=== PATIENT | female | born 1965 | race Caucasian/White ===

== ENCOUNTER 2020-11-27 07:30 | Outpatient (CLI) | payer OTHER, SELFPAY ==
[2020-11-27 07:46] LABS: Basophils Percent Auto 0.5 % (0.2-1.2); Eosinophils Absolute Auto 0.4 K/mm3 (0-0.3); Eosinophils Percent Auto 5.3 % (0-4.4); Hemoglobin 14.5 g/dL (12.0-15.0); Immature Granulocyte Absolute 0.01 K/mm3 (0.00-0.031); Immature Granulocyte Percent A 0.1 % (0-0.5); Lymphocytes Absolute Auto 1.93 K/mm3 (0.9-3.2); Lymphocytes Percent Auto 25.7 % (18.3-44.2); Mean Corpuscular HGB Conc 31.5 g/dl (32-36); Mean Corpuscular Hemoglobin 29.5 pg (26-34); Mean Corpuscular Volume 93.7 fl (80-100); Mean Platelet Volume 8.7 fl (7.4-10.4); Monocytes Absolute Auto 0.6 K/mm3 (0.1-0.6); Monocytes Percent Auto 7.5 % (2.6-8.5); Neutrophils Absolute Auto 4.6 K/mm3 (1.3-6.7); Neutrophils Percent Auto 60.9 % (45.5-73.1); Platelet Count Result 282 k/mm3 (150-375); Red Blood Count 4.91 M/mm3 (4.2-5.4); Red Cell Distribution Width 14.3 % (11.5-14.5); White Blood Count 7.5 K/mm3 (4.5-10.0)
[2020-11-27 07:58] LABS: Alanine Aminotransferase 20 U/L (4-35); Albumin Level 4.2 g/dL (3.5-5.1); Alkaline Phosphatase 76 U/L (38-126); Anion Gap 5 mmol/L (8-16); Aspartate Amino Transferase 21 U/L (14-36); Bilirubin,Total 0.5 mg/dL (0.2-1.3); Blood Urea Nitrogen 20 mg/dL (7-17); Calcium 9.3 mg/dL (8.4-10.2); Carbon Dioxide 32 mmol/L (22-30); Chloride 104 mmol/L (98-107); Cholesterol 158 mg/dL (0-200); Estimated Glomerular Filt Rate 58; Glucose 135 mg/dL (65-105); HDL Direct 46 mg/dL; Potassium 4.6 mmol/L (3.4-5.0); Sodium 141 mmol/L (137-145); Triglycerides 97 mg/dL (<150)
[2020-11-27 07:59] LABS: Hemoglobin A1C 5.7 % (<5.7)
[2020-11-27 08:09] LABS: LDL Cholesterol Direct 89 mg/dL
== END 2020-11-27 07:31 | disposition home or self-care (01) ==
PROVIDERS: PCP Family Medicine; Visit Provider Family Medicine
DX: I10 Essential (primary) hypertension (principal); E11.9 Type 2 diabetes mellitus without complications; E78.2 Mixed hyperlipidemia
CPT/HCPCS: 36415; 80053; 80061; 83036; 85025

== ENCOUNTER 2020-12-11 06:35 | Outpatient (CLI) | payer OTHER, SELFPAY ==
--- NOTE | 2020-12-11 06:45 | ECHO_ITS ---
Patient Info Name: Whit Jorge Age: 55 years : 1965 Gender: Female Ht: 64 in Wt: 349 lbs BSA: 2.78 m2 HR: 60 bpm BP: 138 / 86 mmHg Technical Quality: Poor Exam Date: 12/11/2020 6:50 AM Exam Location: [facility] Patient Status: Outpatient Admit Date: 12/11/2020 Staff Ordering Physician: Leanne Ireland MD Washer Engineer: Sejal Maldonado RDCS Attending Provider: Leanne Ireland MD Referring Physician: Beka BUCKNER; Exam Type: CA echo doppler color flow Study Info Indications - heart failure Complete two-dimensional, color flow and Doppler transthoracic echocardiogram is performed. Summary 1. Complete two-dimensional, color flow and Doppler transthoracic echocardiogram is performed. 2. Technically suboptimal study due to poor sonographic images. 3. Left ventricular chamber dimension is normal. 4. Left ventricular systolic function is normal, estimated at 55-60%. 5. There is mildly increased left ventricular wall thickness. 6. The left ventricular diastolic function is normal. 7. E/e' 9 is minimally elevated. 8. No pulmonary hypertension, estimated pulmonary arterial systolic pressure is 25 mmHg. 9. There is trivial pericardial effusion. Left Ventricle Technically suboptimal study due to poor sonographic images. E/e' 9 is minimally elevated. Left ventricular chamber dimension is normal. Left ventricular systolic function is normal, estimated at 55-60%. There is mildly increased left ventricular wall thickness. The left ventricular diastolic function is normal. Right Ventricle Right ventricular chamber dimension is not well visualized. Left Atria Left atrial chamber dimension is normal. Right Atria Right atrial chamber dimension is not well visualized. Aortic Valve The aortic valve is not well visualized. Cannot determine number of aortic valve leaflets. There is no aortic valve stenosis. There is no aortic valve regurgitation. Pulmonic Valve The pulmonic valve is not well visualized. Mitral Valve The mitral valve has not well visualized. There is no mitral valve stenosis. There is no mitral valve regurgitation. Tricuspid Valve The tricuspid valve leaflets are not well visualized. There is no tricuspid valve regurgitation. No pulmonary hypertension, estimated pulmonary arterial systolic pressure is 25 mmHg. Pericardium/Pleural There is trivial pericardial effusion. Inferior Vena Cava Inferior vena cava is not well visualized. Aorta The aortic root size at the sinus of Valsalva is not well visualized. Left Ventricular Outflow Tract Name Value Normal LVOT 2D LVOT Diameter 2.3 cm LVOT Doppler LVOT Peak Gradient 4 mmHg LVOT Mean Gradient 2 mmHg LVOT VTI 18 cm LVOT VTI/AV VTI Ratio 0.6 LVOT Stroke Volume 76 ml LVOT CO 4.3 l/min LVOT CI 1.5 l/min/m2 Pulmonic Valve
== END 2020-12-11 06:36 | disposition home or self-care (01) ==
PROVIDERS: PCP Family Medicine; Visit Provider Family Medicine
DX: I50.9 Heart failure, unspecified (principal)
CPT/HCPCS: 93306

== ENCOUNTER 2020-12-17 17:07 | Outpatient (CLI) | payer OTHER, SELFPAY ==
--- NOTE | ~2020-12-17 | MM_ITS ---
EXAMINATION: MM screening jus BI w marla HISTORY: Screening TECHNIQUE: Craniocaudal and mediolateral oblique 3-D tomosynthesis images were obtained and synthetic 2-D images were generated. CAD analysis was submitted and interpreted. COMPARISON: No prior mammogram is available for comparison at this institution. BREAST PARENCHYMAL COMPOSITION: There are scattered areas of fibroglandular density. FINDINGS: There is no evidence of suspicious mass, calcification, or architectural distortion to sugg est malignancy in either breast. There has been no suspicious interval change. IMPRESSION: 1. No mammographic evidence of malignancy. 2. Recommend routine screening mammography in one year. BI-RADS Category 1: Negative Reviewed, dictated and finalized at location A.
== END 2020-12-17 17:08 | disposition home or self-care (01) ==
LOC: ANHIMG 17:12
PROVIDERS: PCP Family Medicine; Visit Provider Family Medicine
DX: Z12.31 Encounter for screening mammogram for malignant neoplasm of breast (principal)
CPT/HCPCS: 77063; 77067

== ENCOUNTER 2021-01-22 09:58 | Outpatient (CLI) | payer OTHER, SELFPAY ==
--- NOTE | ~2021-01-22 | XR_ITS ---
XR chest 2V DATE: 01/22/2021 10:24 INDICATION: Cough. History of bronchitis. TECHNIQUE: PA and lateral views COMPARISON: 09/11/2020 PA chest FINDINGS: There is increased density and air bronchograms in the left lower lobe, suggesting atelecta sis/consolidation. The left diaphragm appears elevated. CT thorax with IV contrast material is recomm ended for better evaluation. The right lung appears clear. No right pleural effusion is noted. Heart size is not optimally evaluated due to obliteration of portions of the cardiac margin by surrou nding atelectasis or infiltrate on both views. No pneumothorax. Degenerative spurring of the thoracic spine. IMPRESSION: Left lower lobe atelectasis and/or consolidation and mild elevation of left diaphragm. CT thorax with IV contrast material is recommended. Dr. Peace left a voicemail message with the report findings and CT thorax recommendation on 01/22/2021 at 1224 hours at [phone]. Reviewed, dictated and finalized at location B. IMPRESSION: Left lower lobe atelectasis and/or consolidation and mild elevation of left diaphragm. CT thorax with IV contrast material is recommended. Dr. Peace left a voicemail message with the report findings and CT thorax recomm endation on 01/22/2021 at 1224 hours at [phone].
== END 2021-01-22 09:59 | disposition home or self-care (01) ==
LOC: ANHIMG 10:07
PROVIDERS: PCP Family Medicine; Visit Provider Physician Assistant
DX: R05 Cough (principal); R91.8 Other nonspecific abnormal finding of lung field
CPT/HCPCS: 71046

== ENCOUNTER 2021-03-26 07:30 | Outpatient (CLI) | payer OTHER, SELFPAY ==
--- NOTE | ~2021-03-26 | XR_ITS ---
EXAMINATION: XR ankle LT 2V, XR foot LT min 3V DATE: 03/26/2021 08:31 INDICATION: Left foot and ankle pain post fall TECHNIQUE: 1. Anteroposterior and lateral view of the left ankle were obtained. 2. Dorsoplantar, two oblique and lateral views of the left foot were obtained. COMPARISON: None. FINDINGS: Alignment of the left foot and ankle is normal. No fracture or osteochondral lesion. Polyarticular os teoarthritis, moderate severity at the second and third tarsal metatarsal joints and mild at the michela ining tarsal metatarsal joints, first metatarsophalangeal joint and a few interphalangeal joints. Mod erate-sized plantar calcaneal spur with adjacent tiny enthesopathic ossicle. No ankle joint effusion. The soft tissues are unremarkable. IMPRESSION: 1. Mild to moderate polyarticular osteoarthritis in the left fore and midfoot. No acute osseous abnor mality. Reviewed, dictated and finalized at location A. IMPRESSION: 1. Mild to moderate polyarticular osteoarthritis in the left fore and midfoot. No acute osseous abnormality.
[2021-03-26 08:31] LABS: Alanine Aminotransferase 22 U/L (4-35); Albumin Level 4.1 g/dL (3.5-5.1); Alkaline Phosphatase 82 U/L (38-126); Anion Gap 6 mmol/L (8-16); Aspartate Amino Transferase 22 U/L (14-36); Bilirubin,Total 0.5 mg/dL (0.2-1.3); Blood Urea Nitrogen 16 mg/dL (7-17); Calcium 9.3 mg/dL (8.4-10.2); Carbon Dioxide 31 mmol/L (22-30); Chloride 104 mmol/L (98-107); Estimated Glomerular Filt Rate > 60; Glucose 108 mg/dL (65-110); Potassium 4.3 mmol/L (3.4-5.0); Sodium 141 mmol/L (137-145)
[2021-03-26 09:41] LABS: Creatinine Urine 188.5 mg/dL
[2021-03-26 09:52] LABS: MALB Creatinine Ratio 42.2 mg/g (0-30); Microalbumin Urine Random 79.6 mg/L (0-16.7)
== END 2021-03-26 07:31 | disposition home or self-care (01) ==
PROVIDERS: PCP Family Medicine; Visit Provider Family Medicine
DX: T14.90XA Injury, unspecified, initial encounter (principal); E11.9 Type 2 diabetes mellitus without complications; I10 Essential (primary) hypertension; M19.072 Primary osteoarthritis, left ankle and foot
CPT/HCPCS: 36415; 73600; 73630; 80053; 82043

== ENCOUNTER 2021-05-06 09:34 | Outpatient (CLI) | payer OTHER, SELFPAY ==
--- NOTE | ~2021-05-06 | CT_ITS ---
EXAMINATION: CT diagnostic chest wo con EXAM DATE: 05/06/2021 09:56 INDICATION: f/u from CXR 01/2021. TECHNIQUE: Spiral CT of the chest without contrast. Axial, coronal and sagittal images of the chest were reviewed. Coronal maximum intensity pixel images of chest reviewed. The dose-length product ( DLP) for this examination was 982.42 mGy-cm. The exposure was tailored according to patient size (au to mA exposure control), and iterative reconstruction (ASIR) was used as additional dose reduction te chnique. Comparison is made to prior examination from 01/22/2021. FINDINGS: There are no pleural or pericardial effusions. Tracheobronchial tree is patent. There is no mediastinal, hilar or axillary lymphadenopathy. There is no pneumothorax. There is cardiome lainey. There is left basilar segmental atelectasis. No evidence of underlying mass. No evidence of co ronary arterial calcification. Upper abdomen is unremarkable. There is thoracic spondylosis withou t osteoblastic or osteolytic lesions identified. IMPRESSION: 1. Cardiomegaly, adjacent segmental left basilar atelectasis. 2. No suspicious lung opacities. Reviewed, dictated and finalized at location B.
== END 2021-05-06 09:35 | disposition home or self-care (01) ==
PROVIDERS: PCP Family Medicine; Visit Provider Family Medicine
DX: R91.8 Other nonspecific abnormal finding of lung field (principal); I51.7 Cardiomegaly
CPT/HCPCS: 71250

== ENCOUNTER 2021-07-24 07:41 | Outpatient (CLI) | payer OTHER, SELFPAY ==
[2021-07-24 08:23] LABS: Alanine Aminotransferase 20 U/L (4-35); Albumin Level 4.5 g/dL (3.5-5.1); Alkaline Phosphatase 85 U/L (38-126); Anion Gap 8 mmol/L (8-16); Aspartate Amino Transferase 21 U/L (14-36); Bilirubin,Total 0.6 mg/dL (0.2-1.3); Blood Urea Nitrogen 16 mg/dL (7-17); Calcium 9.5 mg/dL (8.4-10.2); Carbon Dioxide 29 mmol/L (22-30); Chloride 100 mmol/L (98-107); Estimated Glomerular Filt Rate > 60; Glucose 119 mg/dL (65-110); Potassium 4.4 mmol/L (3.4-5.0); Sodium 137 mmol/L (137-145)
[2021-07-24 08:25] LABS: Hemoglobin A1C 5.5 % (<5.7)
== END 2021-07-24 07:42 | disposition home or self-care (01) ==
LOC: ANHLAB 07:43
PROVIDERS: PCP Family Medicine; Visit Provider Physician Assistant
DX: I12.9 Hypertensive chronic kidney disease with stage 1 through stage 4 chronic kidney disease, or unspecified chronic kidney disease (principal); N18.30 Chronic kidney disease, stage 3 unspecified; E66.9 Obesity, unspecified; E11.9 Type 2 diabetes mellitus without complications
CPT/HCPCS: 36415; 80053; 83036; 84443

== ENCOUNTER 2021-09-01 15:26 | Emergency (ER) | payer OTHER, SELFPAY ==
[2021-09-01 16:28] VITALS: BP 124/59; PULSE 82; RESP 18; TEMP 36.6; O2SAT 100
--- NOTE | 2021-09-01 17:45 | ED.BACK ---
HPI - Back Pain/Injury General Chief Complaint: Back Pain/Injury Stated Complaint: Lower back pain Time Seen by Provider: 09/01/21 17:45 Source: patient Mode of arrival: ambulatory Limitations: no limitations History of Present Illness HPI Narrative: Whit Jorge is a 56 yo female with a PMH of chronic back pain, asthma, depression, hypertension, diabetes, high cholesterol, [facility] . She woke up with lower back pain but today she was lifting a trash bag and then back spasms intensified Related Data Home Medications Medication Instructions Recorded Confirmed Saccharomyces boulardii 250 mg 250 mg PO BID 11/12/20 08/25/21 capsule aspirin 81 mg tablet,delayed 81 mg PO DAILY 11/12/20 08/25/21 release cholecalciferol (vitamin D3) 125 125 mcg PO DAILY 11/12/20 08/25/21 mcg (5,000 unit) capsule cinnamon bark 500 mg capsule 500 mg PO DAILY 11/12/20 08/25/21 krill oil 500 mg capsule mg PO 11/12/20 08/25/21 multivitamin 1 tablet PO DAILY 11/12/20 08/25/21 Allergies Allergy/AdvReac Type Severity Reaction Status Date / Time Penicillins Allergy Intermediate body rash Verified 09/01/21 17:26 grass pollen Allergy Mild sneezes Verified 09/01/21 17:26 and watery eyes Review of Systems Review of Systems: CONSTITUTIONAL: Denies fever, chills, sweats. EYES: Denies visual changes, redness, discharge. ENT: Denies rhinorrhea, congestion, sore throat, otalgia. CARDIOVASCULAR: Denies chest pain, palpitations, edema. RESPIRATORY: Denies dyspnea, wheezing, cough GASTROINTESTINAL: Denies abdominal pain, nausea, vomiting, diarrhea. GENITOURINARY: Denies dysuria, hematuria, abnormal discharge SKIN: Denies rash or itching. NEUROLOGIC: Denies numbness, or focal weakness. PSYCHIATRIC: Denies anxiety or depression. Lower back pain PMFSH Past Medical History Medical History Asthma Asthma Benign essential HTN Benign essential HTN Diabetes mellitus Diabetes mellitus Extreme obesity Extreme obesity Hyperlipidemia Hyperlipidemia Surgical History Surgical History History of uvulopalatopharyngoplasty 1999 Family History Family History Father Heart disease Sibling Depression Anxiety Alcoholism Grandparent Cerebrovascular accident Social History Social History Social History: Smoking status: Never smoker Second hand tobacco smoke exposure: No Alcohol intake: current Drinks per week: 2 Substance use: never Substance use type: does not use Gender identity (if verbalized by the patient): Female Sexual Orientation (if Verbalized by the Patient): Straight or Heterosexual Comments At time of signature, I agree with nursing past medical, surgical, social and family history. There is no relevant family history pertinent to the presenting complaint. Exam Narrative: GENERAL: This is a well-nourished, well-developed patient, in mild distress. HEAD: normocephalic, atraumatic. EYES:Sclera clear/white. Vision is grossly intact. EARS: External ears normal,. Hearing grossly intact. NOSE: External nose normal without nasal discharge, nares without redness, no rhinorrhea. THROAT: Mucous membranes moist, NECK: Neck supple, CARDIOVASCULAR: Regular rate and rhythm without murmurs, gallops, or rubs. RESPIRATORY: Clear to auscultation. Breath sounds equal bilaterally. No wheezes, rales, or rhonchi. GASTROINTESTINAL: Abdomen soft, large pannus SKIN: warm, intact with no suspicious lesions or rash, good texture and turgor. NEURO: awake, alert, and oriented to person, place and time. There were no obvious focal neurologic abnormalities. Steady gait EXTREMITIES: Normal range of motion. BACK: Nontender without deformity Course C
== END 2021-09-01 18:10 | disposition home or self-care (01) ==
PROVIDERS: Emergency Provider Nurse Practitioner
DX: M54.50 Low back pain, unspecified (principal); J45.909 Unspecified asthma, uncomplicated; I10 Essential (primary) hypertension; E11.9 Type 2 diabetes mellitus without complications; E78.5 Hyperlipidemia, unspecified; E66.01 Morbid (severe) obesity due to excess calories; Z68.43 Body mass index [BMI] 50.0-59.9, adult
CPT/HCPCS: 99213; G0463

== ENCOUNTER 2021-09-24 08:14 | Outpatient (CLI) | payer OTHER, SELFPAY ==
[2021-09-24 08:39] LABS: Basophils Percent Auto 0.3 % (0.2-1.2); Eosinophils Absolute Auto 0.2 K/mm3 (0-0.3); Eosinophils Percent Auto 3.6 % (0-4.4); Hematocrit 42.7 % (37.0-47.0); Hemoglobin 13.3 g/dL (12.0-15.0); Immature Granulocyte Absolute 0.01 K/mm3 (0.00-0.031); Immature Granulocyte Percent A 0.2 % (0-0.5); Lymphocytes Absolute Auto 1.64 K/mm3 (0.9-3.2); Lymphocytes Percent Auto 25.9 % (18.3-44.2); Mean Corpuscular HGB Conc 31.1 g/dl (32-36); Mean Corpuscular Hemoglobin 28.7 pg (26-34); Mean Corpuscular Volume 92.2 fl (80-100); Mean Platelet Volume 8.5 fl (7.4-10.4); Monocytes Absolute Auto 0.6 K/mm3 (0.1-0.6); Monocytes Percent Auto 9.3 % (2.6-8.5); Neutrophils Absolute Auto 3.8 K/mm3 (1.3-6.7); Neutrophils Percent Auto 60.7 % (45.5-73.1); Platelet Count Result 312 k/mm3 (150-375); Red Blood Count 4.63 M/mm3 (4.2-5.4); Red Cell Distribution Width 15.3 % (11.5-14.5); White Blood Count 6.3 K/mm3 (4.5-10.0)
[2021-09-24 08:46] LABS: Hemoglobin A1C 5.8 % (<5.7)
[2021-09-24 08:54] LABS: Alanine Aminotransferase 20 U/L (4-35); Albumin Level 4.2 g/dL (3.5-5.1); Alkaline Phosphatase 101 U/L (38-126); Anion Gap 9 mmol/L (8-16); Aspartate Amino Transferase 23 U/L (14-36); Bilirubin,Total 0.5 mg/dL (0.2-1.3); Blood Urea Nitrogen 10 mg/dL (7-17); Carbon Dioxide 29 mmol/L (22-30); Chloride 104 mmol/L (98-107); Cholesterol 153 mg/dL (0-200); Estimated Glomerular Filt Rate 58; Glucose 133 mg/dL (65-110); HDL Direct 47 mg/dL; Potassium 4.2 mmol/L (3.4-5.0); Sodium 142 mmol/L (137-145); Triglycerides 86 mg/dL (<150)
[2021-09-24 09:05] LABS: LDL Cholesterol Direct 81 mg/dL
== END 2021-09-24 08:15 | disposition home or self-care (01) ==
PROVIDERS: PCP Family Medicine; Visit Provider Nurse Practitioner Gerontology
DX: I12.9 Hypertensive chronic kidney disease with stage 1 through stage 4 chronic kidney disease, or unspecified chronic kidney disease (principal); N18.30 Chronic kidney disease, stage 3 unspecified; I25.10 Atherosclerotic heart disease of native coronary artery without angina pectoris; E11.9 Type 2 diabetes mellitus without complications; E78.5 Hyperlipidemia, unspecified
CPT/HCPCS: 36415; 80053; 80061; 83036; 84443; 85025

== ENCOUNTER 2022-01-12 13:38 | Outpatient (CLI) | payer OTHER, SELFPAY ==
--- NOTE | ~2022-01-12 | XR_ITS ---
XR hand LT min 3V DATE: 01/12/2022 13:56 INDICATION: Fall. Second metacarpal pain TECHNIQUE: 3 views COMPARISON: None FINDINGS: Plate and screws along the distal radius. No recent fracture or dislocation, periosteal suyapa ction or bone destruction is detected. IMPRESSION: No recent fracture or dislocation is detected Postoperative change of distal radius Reviewed, dictated and finalized at location B.
== END 2022-01-12 13:39 | disposition home or self-care (01) ==
PROVIDERS: PCP Family Medicine; Visit Provider Nurse Practitioner Gerontology
DX: M79.642 Pain in left hand (principal)
CPT/HCPCS: 73130

== ENCOUNTER 2022-01-21 11:03 | Outpatient (CLI) | payer OTHER, SELFPAY | END 2022-01-21 11:04 | disposition home or self-care (01) | LOC: ANHAUDIO 11:04 | PROVIDERS: PCP Family Medicine; Visit Provider Otolaryngology | DX: H91.93 Unspecified hearing loss, bilateral (principal); H93.13 Tinnitus, bilateral | CPT/HCPCS: 92557; 92567 ==

== ENCOUNTER 2022-03-23 14:00 | Outpatient (RCR) | payer OTHER, SELFPAY | END 2022-03-23 23:59 | disposition home or self-care (01) | LOC: ANHAUDIO 14:00 | PROVIDERS: PCP Otolaryngology; Visit Provider Otolaryngology | DX: Z46.1 Encounter for fitting and adjustment of hearing aid (principal) | CPT/HCPCS: 99199; V5260 ==

== ENCOUNTER 2022-06-05 09:14 | Outpatient (CLI) | payer OTHER, SELFPAY ==
[2022-06-05 10:34] LABS: Basophils Percent Auto 0.5 % (0.2-1.2); Eosinophils Absolute Auto 0.2 K/mm3 (0-0.3); Eosinophils Percent Auto 2.2 % (0-4.4); Hematocrit 42.4 % (37.0-47.0); Immature Granulocyte Absolute 0.03 K/mm3 (0.00-0.031); Immature Granulocyte Percent A 0.3 % (0-0.5); Lymphocytes Percent Auto 20.4 % (18.3-44.2); Mean Corpuscular HGB Conc 30.7 g/dl (32-36); Mean Corpuscular Hemoglobin 28.7 pg (26-34); Mean Corpuscular Volume 93.6 fl (80-100); Mean Platelet Volume 8.9 fl (7.4-10.4); Monocytes Absolute Auto 0.6 K/mm3 (0.1-0.6); Monocytes Percent Auto 6.2 % (2.6-8.5); Neutrophils Absolute Auto 6.2 K/mm3 (1.3-6.7); Neutrophils Percent Auto 70.4 % (45.5-73.1); Platelet Count Result 398 k/mm3 (150-375); Red Blood Count 4.53 M/mm3 (4.2-5.4); Red Cell Distribution Width 15.5 % (11.5-14.5); White Blood Count 8.8 K/mm3 (4.5-10.0)
[2022-06-05 10:45] LABS: Alanine Aminotransferase 18 U/L (6-35); Albumin Level 4.2 g/dL (3.5-5.1); Alkaline Phosphatase 98 U/L (38-126); Anion Gap 9 mmol/L (8-16); Aspartate Amino Transferase 19 U/L (14-36); Bilirubin,Total 0.5 mg/dL (0.2-1.3); Blood Urea Nitrogen 18 mg/dL (7-17); Calcium 9.2 mg/dL (8.4-10.2); Carbon Dioxide 28 mmol/L (22-30); Chloride 103 mmol/L (98-107); Cholesterol 164 mg/dL (0-200); Estimated Glomerular Filt Rate > 60; Glucose 106 mg/dL (65-110); HDL Direct 45 mg/dL; Potassium 4.4 mmol/L (3.4-5.0); Sodium 140 mmol/L (137-145); Triglycerides 109 mg/dL (<150)
[2022-06-05 10:46] LABS: Hemoglobin A1C 5.7 % (<5.7)
[2022-06-05 10:57] LABS: LDL Cholesterol Direct 92 mg/dL
== END 2022-06-05 09:15 | disposition home or self-care (01) ==
LOC: ANHLAB 09:16
PROVIDERS: PCP Family Medicine; Visit Provider Physician Assistant
DX: Z96.651 Presence of right artificial knee joint (principal); E11.9 Type 2 diabetes mellitus without complications; N18.30 Chronic kidney disease, stage 3 unspecified; R63.2 Polyphagia
CPT/HCPCS: 36415; 80053; 80061; 83036; 84443; 85025

== ENCOUNTER 2022-08-19 17:44 | Outpatient (CLI) | payer OTHER, SELFPAY ==
[2022-08-19 18:13] LABS: Alanine Aminotransferase 26 U/L (6-35); Albumin Level 4.4 g/dL (3.5-5.1); Alkaline Phosphatase 92 U/L (38-126); Anion Gap 6 mmol/L (8-16); Aspartate Amino Transferase 23 U/L (14-36); Bilirubin,Total 0.3 mg/dL (0.2-1.3); Blood Urea Nitrogen 14 mg/dL (7-17); Calcium 8.5 mg/dL (8.4-10.2); Carbon Dioxide 29 mmol/L (22-30); Chloride 105 mmol/L (98-107); Estimated Glomerular Filt Rate > 60; Glucose 92 mg/dL (65-110); Potassium 4.2 mmol/L (3.4-5.0); Sodium 140 mmol/L (137-145)
[2022-08-19 18:16] LABS: Hemoglobin A1C 5.7 % (<5.7)
== END 2022-08-19 17:45 | disposition home or self-care (01) ==
LOC: ANHLAB 17:45
PROVIDERS: PCP Family Medicine; Visit Provider Physician Assistant
DX: N18.30 Chronic kidney disease, stage 3 unspecified (principal); E11.9 Type 2 diabetes mellitus without complications
CPT/HCPCS: 36415; 80053; 83036

== ENCOUNTER 2022-08-21 07:57 | Outpatient (CLI) | payer OTHER, SELFPAY ==
--- NOTE | ~2022-08-21 | CT_ITS ---
EXAMINATION: CT soft tissue neck w con DATE: 08/21/2022 08:27 INDICATION: Parotid mass. TECHNIQUE: Computed tomography (CT) of the neck was performed with 75 mL Omnipaque-350 intravenous co ntrast. Automated exposure control and iterative reconstruction technique were employed. The dose-nathalie gth product was 648.24 mGy-cm. COMPARISON: None FINDINGS: There are no pathologically enlarged lymph nodes. There is a 12 mm nodule in right thyroid lobe, likely not clinically significant. The parotid glands are normal. The submandibular glands are normal. There is mild mucosal thickening in left maxillary sinus. There is a trace left mastoid effus ion. There is severe cervical spondylosis. IMPRESSION: 1. Normal parotid glands. Reviewed, dictated and finalized at location A. ATION / CHEMISTRY TECHNICIAN IMPRESSION: 1. Normal parotid glands.
== END 2022-08-21 07:58 | disposition home or self-care (01) ==
PROVIDERS: PCP Family Medicine; Visit Provider Otolaryngology
DX: K11.8 Other diseases of salivary glands (principal)
CPT/HCPCS: 70491; Q9967

== ENCOUNTER 2022-10-13 16:11 | Outpatient (CLI) | payer OTHER, SELFPAY ==
--- NOTE | ~2022-10-13 | XR_ITS ---
EXAMINATION: XR shoulder RT min 2V DATE: 10/13/2022 16:42 INDICATION: Pain posterior to the right shoulder blade TECHNIQUE: AP internally and externally rotated, AP oblique externally rotated and transscapular Y vi ews of the right shoulder were obtained. COMPARISON: None FINDINGS: Normal alignment. No fracture.Mild glenohumeral osteoarthritis with small marginal osteophytes at th e glenoid and humeral head and mild inferior predominant nonuniform joint space narrowing. There is a lso mild right acromioclavicular osteoarthritis. Visualized portion of the right lung is clear. Sever e cervical and moderate upper thoracic spondylosis. Soft tissues are unremarkable. IMPRESSION: Moderate right glenohumeral and acromioclavicular osteoarthritis. Reviewed, dictated and finalized at location A. D SPEC
--- NOTE | ~2022-10-13 | XR_ITS ---
EXAMINATION:XR_CERV2-3V_CR DATE: 10/13/2022 16:42 INDICATION: Cervicalgia with pain radiating down the right side of the neck and decreased range of mo tion TECHNIQUE: AP, lateral, lateral swimmers and odontoid views of the cervical spine are provided. COMPARISON: None FINDINGS: Mild lower cervical kyphosis. A degree cervical dextrocurvature. Odontoid is intact. Normal atlantoa xial interval. Vertebral body heights are normal. Moderate disc height loss prominent anterior endpla te osteophytes at C5-C6 and C6-C7. There are also small posterior endplate osteophytes at both levels resulting in mild central canal stenosis. Mild disc height loss at C2-C3. Severe facet osteoarthriti s on the left at C2-C3 through C4-C5 with mild to moderate facet osteoarthritis at several additional levels on the left and right. There is also multilevel moderate cervical uncovertebral osteoarthriti s. Prevertebral soft tissues are normal. IMPRESSION: 1. Moderate cervical spondylosis. Reviewed, dictated and finalized at location A. OLIC PRIEST
--- NOTE | ~2022-10-13 | XR_ITS ---
EXAMINATION: XR chest 2V DATE: 10/13/2022 16:42 INDICATION: Right-sided chest pain TECHNIQUE: PA and lateral views of the chest were obtained. COMPARISON: Chest radiograph dated 01/22/[address] dated 05/06/2021 FINDINGS: Cardiomegaly with no interval change in opacities in the left lower lung zone corresponding to associ ated small left pericardial fat pad and compressive atelectasis at the beginning where it was ligated inferior lingula and anterior left lower lobe. No new airspace opacities, pulmonary edema, pleural e ffusion or pneumothorax. There are bridging osteophytes at multiple levels in the spine, consistent w ith diffuse idiopathic skeletal hyperostosis (DISH). IMPRESSION: 1. Chronic atelectasis at the left lower lobe and lingula along side the enlarged heart and prominent left pericardial fat pad. No acute cardiopulmonary disease. Reviewed, dictated and finalized at location A. TENDER IMPRESSION: 1. Chronic atelectasis at the left lower lobe and lingula along side the enlarg ed heart and prominent left pericardial fat pad. No acute cardiopulmonary disea se.
== END 2022-10-13 16:12 | disposition home or self-care (01) ==
LOC: ANHIMG 16:14
PROVIDERS: PCP Family Medicine; Visit Provider Nurse Practitioner Gerontology
DX: R07.89 Other chest pain (principal); M47.892 Other spondylosis, cervical region; M19.011 Primary osteoarthritis, right shoulder; R91.8 Other nonspecific abnormal finding of lung field
CPT/HCPCS: 71046; 72040; 73030

== ENCOUNTER 2022-10-15 13:50 | Emergency (ER) | payer OTHER, SELFPAY ==
--- NOTE | ~2022-10-15 | XR_ITS ---
EXAMINATION: XR hand RT min 3V DATE: 10/15/2022 17:41 INDICATION: Right hand pain TECHNIQUE: Posteroanterior, oblique and lateral views of the right hand were obtained. COMPARISON: None. FINDINGS: 2 mm ulnar minus variance. On the lateral projection there is radial subluxation and angulation at th e first carpometacarpal joint which could be normal physiologic laxity but also raises suspicion for prior injury to the ulnar collateral ligament complex. This could also account for the prominent cyst ic change with thin sclerotic margins at the base of the first proximal phalanx. Alignment is otherwi se normal. Lucency with regions of linear sclerosis at the distal right radius with appearance on the lateral projection suggesting old healed fracture. There is radial deviation of the ulnar styloid pr ocess also suggesting an old healed fracture deformity. Small heterotopic ossicle near the tip of the ulnar styloid process also likely sequela of old trauma. No acute fractures identified. Polyarticula r osteoarthritis, mild to moderate severity at the first metacarpophalangeal joint and mild at the ri ght wrist, triscaphe, first carpometacarpal and multiple interphalangeal joints. Soft tissues are unr emarkable. IMPRESSION: 1. No acute osseous abnormality. 2. Lucency with linear sclerosis at the distal right radius with appearance on lateral projection sug gesting this represents sequela of an old healed fracture as does the radial deviation of the ulnar s tyloid process. Correlate with clinical history. 3. Radial angulation and subluxation at the first metacarpophalangeal joint which could be related to physiologic ligamentous laxity but along with the cystic change at the base of the proximal phalanx suggests sequela of old injury to the ulnar collateral ligament. 4. Polyarticular osteoarthritis, mild to moderate osteoarthritis at the first metacarpophalangeal katie nt and otherwise mild. Reviewed, dictated and finalized at location A. TERPERSON IMPRESSION: 1. No acute osseous abnormality. 2. Lucency with linear sclerosis at the distal right radius with appearance on lateral projection suggesting this represents sequela of an old healed fracture as does the radial deviation of the ulnar styloid process. Correlate with clin ical history. 3. Radial angulation and subluxation at the first metacarpophalangeal joint whi ch could be related to physiologic ligamentous laxity but along with the cystic change at the base of the proximal phalanx suggests sequela of old injury to t he ulnar collateral ligament. 4. Polyarticular osteoarthritis, mild to moderate osteoarthritis at the first m etacarpophalangeal joint and otherwise mild.
[2022-10-15 14:18] VITALS: BP 151/75; PULSE 69; RESP 20; TEMP 36.4; O2SAT 100
--- NOTE | 2022-10-15 17:08 | ED.EXTPRO ---
HPI - Extremity Problem General Chief complaint: Extremity Problem,Nontraumatic Stated complaint: hand pain Time Seen by Provider: 10/15/22 16:54 History of Present Illness HPI Narrative: Patient is a 57-year-old female here for evaluation of right hand pain over the past 2 days. Patient states that she saw her primary care doctor upon symptom onset was diagnosed with cervical spondylosis. At that time she was having neck pain that shot down her right upper extremity into her fingers, worse with movement of the neck. She was prescribed tramadol and muscle relaxants which she has been taking without relief of her pain. States that she always has some chronic hand pain but today it got much worse. Described as a throbbing shooting sensation in all 5 digits. Pain is worse with movement of the wrist. 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 No numbness or tingling, trauma to the hand or wrist, weakness in the extremity. She tells me she has a history of old wrist fractures in both hands that were treated nonoperatively. Related Data Home Medications Medication Instructions Recorded Confirmed Saccharomyces boulardii 250 mg 250 mg PO BID 11/12/20 10/13/22 capsule (Daily Probiotic (S. boulardii)) aspirin 81 mg tablet,delayed 81 mg PO DAILY 11/12/20 10/13/22 release cholecalciferol (vitamin D3) 125 125 mcg PO DAILY 11/12/20 10/13/22 mcg (5,000 unit) capsule cinnamon bark 500 mg capsule 500 mg PO DAILY 11/12/20 10/13/22 krill oil 500 mg capsule mg PO 11/12/20 10/13/22 multivitamin 1 tablet PO DAILY 11/12/20 10/13/22 Allergies Allergy/AdvReac Type Severity Reaction Status Date / Time Penicillins Allergy Intermediate body rash Verified 10/15/22 17:12 grass pollen Allergy Mild sneezes Verified 10/15/22 17:12 and watery eyes dulaglutide [From Trulicity] AdvReac Intermediate Nausea and Verified 10/15/22 17:12 Vomiting Review of Systems Review of Systems: Gen.: Denies fevers or chills Eyes: Denies eye pain or visual change ENT: Denies congestion Respiratory: Denies shortness of breath or cough CV: Denies chest pain or palpitations GI: Denies abdominal pain nausea, emesis or diarrhea denies burning, urgency, frequency or hematuria Musculoskeletal: Reports right hand pain Neuro: Denies numbness, tingling, weakness or focal weakness Skin: Denies rash Except as documented, all other systems reviewed and negative [facility] Past Medical History Medical History Asthma Asthma Benign essential HTN Benign essential HTN Diabetes mellitus Diabetes mellitus Extreme obesity Extreme obesity Hyperlipidemia Hyperlipidemia Surgical History Surgical History History of uvulopalatopharyngoplasty 1999 Family History Family History Father Heart disease Sibling Depression Anxiety Alcoholism Grandparent Cerebrovascular accident Social History Social History Social History: Smoking status: Never smoker Second hand tobacco smoke exposure: No Alcohol intake: current Drinks per week: 2 Substance use: never Substance use type: does not use Lack of Transportation: No Lack of Food: Never True Current Housing: I Have Housing Concerned About Future Housing: No Difficulty Paying Gas/Electric Bills: No Difficulty Paying for Meds: No Currently Unemployed: No Education: Bachelor's Degree Difficulty w/ Childcare or Family Care: No Living arrangements: with family Occupation/Education: occupation Gender identity (if verbalized by the patient): Female Sexual Orientation (if Verbalized by the Patient): Straight or Heterosexual Exam Narrative: APPEARANCE: Morbidly obese. Well appearing, no nirmal
[2022-10-15] MEDS: KETOROLAC 30 MG/ML VIAL (*BKC) IM (17:13)
[2022-10-15 18:01] VITALS: BP 160/104; PULSE 63; RESP 20; O2SAT 99
== END 2022-10-15 18:37 | disposition home or self-care (01) ==
PROVIDERS: Emergency Provider Physician Assistant; PCP Family Medicine
DX: G56.01 Carpal tunnel syndrome, right upper limb (principal); J45.909 Unspecified asthma, uncomplicated; I10 Essential (primary) hypertension; E11.9 Type 2 diabetes mellitus without complications; E78.5 Hyperlipidemia, unspecified
CPT/HCPCS: 73130; 96372; 99283; J1885

== ENCOUNTER 2022-11-06 08:00 | Outpatient (CLI) | payer OTHER, SELFPAY ==
--- NOTE | ~2022-11-06 | CT_ITS ---
EXAMINATION: CT brain wo con DATE: 11/06/2022 08:31 INDICATION: Paresthesias. TECHNIQUE: Computed tomography (CT) of the head was performed without intravenous contrast. The dose- length product was 605.33 mGy-cm. Automated exposure control and iterative reconstruction technique w ere employed. COMPARISON: None FINDINGS: Normal brain parenchymal volume. Normal abernathy-white differentiation. No acute hemorrhage, in farction, mass or mass effect. There is intracranial atherosclerosis. Small air-fluid level left maxi llary sinus consistent with sinusitis. Mastoids are pneumatized. No depressed skull fractures. IMPRESSION: 1. No acute intracranial abnormality. 2: Mild left maxillary sinus disease. Reviewed, dictated and finalized at location B. CTOR INSTRUCTIONAL MATERIAL
--- NOTE | ~2022-11-06 | CT_ITS ---
EXAMINATION: CT cervical spine wo con DATE: 11/06/2022 08:31 INDICATION: Neck and shoulder pain. TECHNIQUE: Computed tomography (CT) of the cervical spine was performed without intravenous contrast. Automated exposure control and iterative reconstruction technique were employed. The dose-length pro duct was 515.27 mGy-cm. COMPARISON: Cervical spine radiographs 10/13/2022 FINDINGS: There is 5 degrees dextrocurvature of cervical spine. There is kyphosis of cervical spine. Vertebral body heights are normal. There is mildly decreased disc height at C4-C5 and severely decrea sed disc height at C5-C6 and C6-C7. The following disc levels are specifically discussed: C2-C3: There is moderate bilateral uncovertebral joint osteoarthritis. There is severe bilateral face t joint osteoarthritis. There is mild bilateral neural foraminal stenosis. There is mild central ilene l stenosis. C3-C4: There is mild right and severe left uncovertebral joint osteoarthritis. There is severe bilate ral facet joint osteoarthritis. There is moderate left neural foraminal stenosis. There is mild centr al canal stenosis. C4-C5: There is no uncovertebral joint osteoarthritis. There is moderate right and severe left facet joint osteoarthritis. There is no neural foraminal stenosis. There is mild central canal stenosis. C5-C6: There is severe bilateral uncovertebral joint osteoarthritis. There is mild bilateral facet margaret int osteoarthritis. There is moderate right and mild left neural foraminal stenosis. There is mild ce ntral canal stenosis. C6-C7: There is severe bilateral uncovertebral joint osteoarthritis. There is moderate bilateral face t joint osteoarthritis. There is mild bilateral neural foraminal stenosis. There is mild central ilene l stenosis. C7-T1: There is no uncovertebral joint osteoarthritis. There is severe bilateral facet joint osteoart hritis. There is mild bilateral neural foraminal stenosis. There is no central canal stenosis. IMPRESSION: 1. Severe cervical spondylosis. Reviewed, dictated and finalized at location A. AURANT ASSOCIATE
== END 2022-11-06 08:01 | disposition home or self-care (01) ==
PROVIDERS: PCP Family Medicine; Visit Provider Nurse Practitioner Gerontology
DX: R20.0 Anesthesia of skin (principal); M47.892 Other spondylosis, cervical region; J32.0 Chronic maxillary sinusitis
CPT/HCPCS: 70450; 72125

== ENCOUNTER 2022-11-13 13:57 | Outpatient (CLI) | payer OTHER, SELFPAY ==
--- NOTE | ~2022-11-13 | XR_ITS ---
XR shoulder RT min 2V DATE: 11/13/2022 15:30 INDICATION: Right rotator cuff tendinitis. No injury. TECHNIQUE: 3 views of right shoulder COMPARISON: October 13, 2022 right shoulder FINDINGS: There is mild right glenohumeral osteoarthritis. No fracture, dislocation, periosteal reaction or bone destruction or abnormal soft tissue calcificati on of the right shoulder is detected. IMPRESSION: Mild right glenohumeral osteoarthritis Reviewed, dictated and finalized at location B. ICAL SUPERVISOR
--- NOTE | ~2022-11-13 | MR_ITS ---
MRI of the cervical spine Clinical History: Radiculopathy Technique: Axial T2-weighted and gradient images, and sagittal T1-weighted, T2-weighted, and STIR victorina ges were acquired. Findings: There is reversal normal cervical lordosis. No fracture or subluxation identified. No suspi cious bone marrow signal abnormality seen. At C2-C3, there is no significant disc bulge or herniation. There is mild facet arthropathy. No spina l canal stenosis, cord compression, or neural foraminal narrowing. At C3-C4, there is mild disc osteophyte complex. No spinal canal stenosis, cord compression, or defin ite neural foraminal narrowing. At C4-C5, there is mild disc osteophyte complex. No definite spinal canal stenosis, cord compression, or neural foraminal narrowing. At C5-C6, there is disc ossify complex, most pronounced in the right paracentral region. No spinal ca nal stenosis or cord compression. Probable mild right neural foraminal narrowing. Left neural foramen preserved. At C6-C7, there is disc ossify complex. There is no marce spinal canal stenosis or cord compression. Probable bilateral neural foraminal narrowing. No abnormal signal seen in the spinal cord. Paravertebral soft tissues are unremarkable. Impression: Mild degenerative spondylosis, as detailed above. Reviewed, dictated and finalized at [facility]. TION SPECIALIST Impression: Mild degenerative spondylosis, as detailed above.
== END 2022-11-13 13:58 | disposition home or self-care (01) ==
PROVIDERS: PCP Family Medicine; Visit Provider Physician Assistant
DX: M54.12 Radiculopathy, cervical region (principal); M77.8 Other enthesopathies, not elsewhere classified; M43.02 Spondylolysis, cervical region; M19.011 Primary osteoarthritis, right shoulder
CPT/HCPCS: 72141; 73030

== ENCOUNTER 2023-01-01 08:42 | Outpatient (CLI) | payer OTHER, SELFPAY ==
--- NOTE | 2023-01-01 11:00 | NEURO_ITS ---
Impression: Patient reports a history of numbness/pain in both hands. # Early changes suggestive of evolving, mild left Carpal Tunnel Syndrome. # Evidence of right ulnar neuropathy. # Normal needle/EMG exam. # Clinical correlation recommended. Nerve Conduction Studies Anti Sensory Summary Table Stim Site NR Peak (ms) P-T Amp (?V) Site1 Site2 Delta-P (ms) Dist (cm) Pavel (m/s) Left Median Anti Sensory (2-3nd Digit) Wrist 3.8 65.8 Wrist 2-3nd Digit 3.8 14.0 37 Wrist 3.7 23.4 Wrist 2-3nd Digit 3.8 14.0 37 Right Median Anti Sensory (2-3nd Digit) Wrist 3.4 84.4 Wrist 2-3nd Digit 3.4 14.0 41 Wrist 3.6 55.3 Wrist 2-3nd Digit 3.4 14.0 41 Left Radial Anti Sensory (Base 1st Digit) Wrist 1.9 21.1 Wrist Base 1st Digit 1.9 0.0 Right Radial Anti Sensory (Base 1st Digit) Wrist 2.1 31.8 Wrist Base 1st Digit 2.1 0.0 Left Ulnar Anti Sensory (5th Digit) Wrist 2.8 91.8 Wrist 5th Digit 2.8 14.0 50 Right Ulnar Anti Sensory (5th Digit) Wrist 2.5 56.5 Wrist 5th Digit 2.5 14.0 56 Motor Summary Table Stim Site NR Onset (ms) O-P Amp (mV) Site1 Site2 Delta-0 (ms) Dist (cm) Pavel (m/s) Left Median Motor (Abd Poll Brev) Wrist 3.2 5.2 Elbow Wrist 3.2 17.0 53 Elbow 6.4 4.8 Right Median Motor (Abd Poll Brev) Wrist 3.1 6.3 Elbow Wrist 3.9 20.0 51 Elbow 7.0 5.8 Left Ulnar Motor (Abd Dig Minimi) Wrist 2.5 5.0 A Elbow Wrist 4.7 25.0 53 A Elbow 7.2 5.3 B Elbow Wrist 2.9 17.0 59 B Elbow 5.4 6.2 Right Ulnar Motor (Abd Dig Minimi) Wrist 3.2 7.3 A Elbow Wrist 5.2 24.0 46 A Elbow 8.4 6.0 B Elbow Wrist 4.0 16.0 40 B Elbow 7.2 5.5 F Wave Studies NR F-Lat (ms) L-R F-Lat (ms) Left Median (Mrkrs) (Abd Poll Brev) 27.25 0.01 Right Median (Mrkrs) (Abd Poll Brev) 27.25 0.01 Left Ulnar (Mrkrs) (Abd Dig Min) 28.26 0.06 Right Ulnar (Mrkrs) (Abd Dig Min) 28.32 0.06 EMG Side Muscle Nerve Root Ins Act Fibs Amp Dur Recrt Comment Right 1stDorInt Ulnar C8-T1 Nml Nml Nml Nml Nml Right Ext Indicis Radial (Post Int) C7-8 Nml Nml Nml Nml Nml Right Ext Digitorum Radial (Post Int) C7-8 Nml Nml Nml Nml Nml Right BrachioRad Radial C5-6 Nml Nml Nml Nml Nml Right PronatorTeres Median C6-7 Nml Nml Nml Nml Nml Right Abd Poll Brev Median C8-T1 Nml Nml Nml Nml Nml Left 1stDorInt Ulnar C8-T1 Nml Nml Nml Nml Nml Left Ext Indicis Radial (Post Int) C7-8 Nml Nml Nml Nml Nml Left Ext Digitorum Radial (Post Int) C7-8 Nml Nml Nml Nml Nml Left BrachioRad Radial C5-6 Nml Nml Nml Nml Nml Left PronatorTeres Median C6-7 Nml Nml Nml Nml Nml Left Abd Poll Brev Median C8-T1 Nml Nml Nml Nml Nml MTDD
== END 2023-01-01 08:43 | disposition home or self-care (01) ==
LOC: ANHNEURO 08:44
PROVIDERS: PCP Family Medicine; Visit Provider Family Medicine
DX: R20.2 Paresthesia of skin (principal)
CPT/HCPCS: 95886; 95911

== ENCOUNTER 2023-02-12 06:36 | Outpatient (CLI) | payer OTHER, SELFPAY ==
[2023-02-12 07:40] LABS: Anion Gap 6 mmol/L (8-16); Blood Urea Nitrogen 21 mg/dL (7-17); Calcium 8.6 mg/dL (8.4-10.2); Carbon Dioxide 30 mmol/L (22-30); Chloride 104 mmol/L (98-107); Estimated Glomerular Filt Rate > 60; Glucose 107 mg/dL (65-110); Potassium 4.2 mmol/L (3.4-5.0); Sodium 140 mmol/L (137-145)
== END 2023-02-12 06:37 | disposition home or self-care (01) ==
LOC: ANHLAB 06:38
PROVIDERS: PCP Family Medicine; Visit Provider Anesthesiology
DX: E11.9 Type 2 diabetes mellitus without complications (principal); Z01.818 Encounter for other preprocedural examination
CPT/HCPCS: 36415; 80048

== ENCOUNTER 2023-02-26 09:42 | Outpatient (CLI) | payer OTHER, SELFPAY ==
[2023-02-26 10:21] LABS: Basophils Percent Auto 0.4 % (0.2-1.2); Eosinophils Absolute Auto 0.2 K/mm3 (0-0.3); Eosinophils Percent Auto 2.7 % (0-4.4); Hematocrit 43.9 % (37.0-47.0); Hemoglobin 13.8 g/dL (12.0-15.0); Immature Granulocyte Absolute 0.02 K/mm3 (0.00-0.031); Immature Granulocyte Percent A 0.2 % (0-0.5); Lymphocytes Absolute Auto 1.83 K/mm3 (0.9-3.2); Lymphocytes Percent Auto 21.6 % (18.3-44.2); Mean Corpuscular HGB Conc 31.4 g/dl (32-36); Mean Corpuscular Volume 95.4 fl (80-100); Mean Platelet Volume 8.7 fl (7.4-10.4); Monocytes Absolute Auto 0.7 K/mm3 (0.1-0.6); Monocytes Percent Auto 7.7 % (2.6-8.5); Neutrophils Absolute Auto 5.7 K/mm3 (1.3-6.7); Neutrophils Percent Auto 67.4 % (45.5-73.1); Platelet Count Result 362 k/mm3 (150-375); Red Cell Distribution Width 14.6 % (11.5-14.5); White Blood Count 8.5 K/mm3 (4.5-10.0)
[2023-02-26 10:34] LABS: Alanine Aminotransferase 23 U/L (6-35); Albumin Level 4.2 g/dL (3.5-5.1); Alkaline Phosphatase 84 U/L (38-126); Anion Gap 7 mmol/L (8-16); Aspartate Amino Transferase 27 U/L (14-36); Bilirubin,Total 0.6 mg/dL (0.2-1.3); Blood Urea Nitrogen 14 mg/dL (7-17); Calcium 8.7 mg/dL (8.4-10.2); Carbon Dioxide 29 mmol/L (22-30); Chloride 103 mmol/L (98-107); Cholesterol 157 mg/dL (0-200); Estimated Glomerular Filt Rate > 60; Glucose 100 mg/dL (65-110); HDL Direct 50 mg/dL; Potassium 4.3 mmol/L (3.4-5.0); Sodium 139 mmol/L (137-145); Triglycerides 81 mg/dL (<150)
[2023-02-26 10:45] LABS: LDL Cholesterol Direct 92 mg/dL
== END 2023-02-26 09:43 | disposition home or self-care (01) ==
PROVIDERS: PCP Family Medicine; Visit Provider Physician Assistant
DX: I25.10 Atherosclerotic heart disease of native coronary artery without angina pectoris (principal); I12.9 Hypertensive chronic kidney disease with stage 1 through stage 4 chronic kidney disease, or unspecified chronic kidney disease; E11.22 Type 2 diabetes mellitus with diabetic chronic kidney disease; N18.30 Chronic kidney disease, stage 3 unspecified
CPT/HCPCS: 36415; 80053; 80061; 85025

== ENCOUNTER 2023-04-07 01:05 | Day surgery (SDC) | payer OTHER, SELFPAY ==
[2023-02-10 11:54] VITALS: BMI 56.7
--- NOTE | 2023-02-10 12:22 | PC.NURSE ---
Addendum entered by Kayla Ritchie RN 03/30/23 15:21: PT TO ARRIVE AT 0615 ON 04/07/23 FOR SURGERY AT 0815. Original Note: PRE-OP INSTRUCTIONS, PLEASE READ CAREFULLY Report to the Outpatient Waiting Room, entrance under the green pavilion located off [facility], at time _0830_ on date _02/18/23_. Planned Procedure Time: _1030_. Time changes happen often and if your time is changed the preop area will call you the afternoon before. - You and your visitor will be asked to self-screen and do not enter if you have any COVID symptoms. - A mask is optional within the hospital at this time. Patients may have clear liquids (water, carbonated beverages, clear teas, apple juice) until 3 hours prior to surgery (0730 AM) with a maximum of 20 ounces. - No food from midnight until time of surgery Take the following medications with a SIP of water the morning of surgery: _CITALOPRAM, VENLAFAXINE, INHALERS_ DO NOT STOP ANY OF YOUR OTHER PRESCRIPTION MEDICATIONS PRIOR TO SURGERY ?EXCEPT THE FOLLOWING Medications to discontinue per ANESTHESIA -_MULTIVITAMIN, CINNAMON BARK, DRILL OIL, PROBIOTIC 3 DAYS PRIOR TO SURGERY, Date to take last dose 02/14/23_ Please no make-up, nail croatian, hairspray, perfume, deodorant, or body powder the day of surgery. No jewelry (including any body piercings) or valuables the day of surgery, leave them at home. Please take a shower or bath the night before, or the morning of, surgery with an antibacterial soap. Wear comfortable, loose fitting clothing. Children are encouraged to wear pajamas. - Jewelry must be removed prior to entering the operating room. Rings and piercings that are not removed may be cut off. - The hospital will not accept responsibility for valuables. - Please leave all valuables, including medications, at home the day of surgery. If you are going home after surgery, a licensed local hazmat driver must drive you home. - NO public transportation without another adult if you receive anesthesia. - We recommend that an adult stay with you for 24 hours following discharge. - We also recommend that you do not drive, make important decision, drink alcoholic beverages, or take any drugs that were not prescribed by your health care provider for at least 24 hours after your discharge time. Follow any additional instructions given to you from your surgeon. If you or anyone in your household have experienced Covid symptoms in the past week, please notify your surgeon or the nurse liaison at the phone number below for possible testing. Telephone instructions given to _PATIENT_and asked if any additional questions and then verbalized understanding. Patient advised to call surgeon office or pre surgery nurse liaison [phone] if any additional questions.
[2023-03-30 15:09] VITALS: BMI 56.7
--- NOTE | 2023-04-06 14:41 | WPDANESEPPF ---
Anes - Initial Pre Proc Eval Procedure: Operation Date: 04/07/23 08:15 Proposed Procedures p Right Ulnar Neuroplasty at Elbow - Felipe Fisher MD Date/Time: 04/06/23 14:41 Surgeon: Felipe Fisher MD Pre Op Diagnosis: right cubital tunnel syndrome Patient Data Age: 57 Gender: F Height: 1.63 m Weight: 150 kg Allergies Allergy/AdvReac Type Severity Reaction Status Date / Time Penicillins Allergy Intermediate body rash Verified 03/30/23 15:07 grass pollen Allergy Mild sneezes Verified 03/30/23 15:07 and watery eyes [facility] AdvReac Intermediate Nausea and Verified 03/30/23 15:07 Vomiting Home Medications Medication Instructions Recorded Confirmed Type Saccharomyces boulardii 250 mg 250 mg PO BID 11/12/20 04/07/23 History capsule (Daily Probiotic (S. boulardii)) aspirin 81 mg tablet,delayed 81 mg PO DAILY 11/12/20 04/07/23 History release cholecalciferol (vitamin D3) 125 125 mcg PO DAILY 11/12/20 04/07/23 History mcg (5,000 unit) capsule cinnamon bark 500 mg capsule 500 mg PO DAILY 11/12/20 04/07/23 History krill oil 500 mg capsule 500 mg PO DAILY 11/12/20 04/07/23 History multivitamin 1 tablet PO DAILY 11/12/20 04/07/23 History nitroglycerin 0.4 mg sublingual 0.4 mg sublingual Q5M PRN chest 11/12/20 04/07/23 Rx tablet pain #30 tabs albuterol sulfate 90 mcg/actuation 2 inh inhalation Q4H PRN shortness 04/08/21 04/07/23 Rx aerosol inhaler of breath or wheezing #8.5 grams clobetasol 0.05 % topical cream 1 applic topical BID 2 weeks #45 07/29/21 04/07/23 Rx grams metformin 1,000 mg tablet 1,000 mg PO BID #180 tabs 09/18/22 04/07/23 Rx nystatin 100,000 unit/gram topical 1 applic topical BID #120 grams 11/20/22 04/07/23 Rx cream semaglutide 0.25 mg or 0.5 mg (2 0.5 mg (0.736 mL) subcut WEEKLY 1 11/20/22 04/07/23 Rx mg/3 mL) subcutaneous pen injector month #4 mL (Ozempic) topiramate 50 mg tablet See Rx Instructions .Route 12/25/22 04/07/23 Rx .COMPLEX #60 tabs celecoxib 50 mg capsule See Rx Instructions .Route 12/28/22 04/07/23 Rx .COMPLEX #60 caps spironolactone 25 mg tablet See Rx Instructions .Route 12/28/22 04/07/23 Rx .COMPLEX #90 tabs empagliflozin 10 mg tablet See Rx Instructions .Route 12/31/22 04/07/23 Rx (Jardiance) .COMPLEX #90 tabs montelukast 10 mg tablet See Rx Instructions .Route 01/13/23 04/07/23 Rx .COMPLEX #90 tabs pravastatin 20 mg tablet See Rx Instructions .Route 02/03/23 04/07/23 Rx .COMPLEX #90 tabs metoprolol succinate 25 mg See Rx Instructions .Route 02/18/23 04/07/23 Rx tablet,extended release 24 hr .COMPLEX 90 days #90 tabs budesonide-formoterol HFA 160 2 puff inhalation Q12H PRN 02/26/23 04/07/23 Rx mcg-4.5 mcg/actuation aerosol Wheezing #10.2 grams inhaler (Symbicort) citalopram 40 mg tablet See Rx Instructions .Route 02/26/23 04/07/23 Rx .COMPLEX #30 tabs losartan 100 mg tablet See Rx Instructions .Route 03/08/23 04/07/23 Rx .COMPLEX #90 tabs venlafaxine 75 mg tablet See Rx Instructions .Route 03/08/23 04/07/23 Rx .COMPLEX #30 tabs Patient hx anesthesia problems: none Family hx anesthesia problems: none Results Review: All pre-operative results and documents have been reviewed as part of the pre-operative evaluation. [facility] Past Medical History Medical History (Updated 04/06/23 @ 14:41 by Gary Nj DO) Asthma Asthma Benign essential HTN Benign essential HTN CHF (congestive heart failure) Diabetes mellitus Diabetes mellitus Extreme obesity Extreme obesity Hyperlipidemia Hyperlipidemia DUKE (obstructive sleep apnea) Seizure as child, none since age 6 Surgical History Surgical History History of uvulopalatopharyngoplasty 1999 Family History Family History Father Heart disease Sibling Depression Anxiety Alcoholism Gran
[2023-04-07 06:31] VITALS: BP 118/68; PULSE 64; RESP 20; TEMP 36.1; O2SAT 100
--- NOTE | 2023-04-07 07:10 | WPDHPUPDATE1 ---
History and Physical Update Update Date/Time: 04/07/23 07:10 History and Physical has been reviewed, including an updated exam of the patient. There are NO changes in the patient's condition. Risks, benefits, and alternatives have been discussed and questions answered. Patient agrees to proceed with procedure.
[2023-04-07] MEDS: LACTATED RINGERS 1,000 ML 30 ML IV CONT (07:30)
[2023-04-07 07:37] LABS: Glucose Point of Care 100 mg/dl (65-105)
[2023-04-07] MEDS: LIDO 1%/EPINEPHRINE 1:100,000 50 ML VIAL 8 ML INFILTRATE (08:19)
[2023-04-07 09:23] VITALS: BP 117/79; PULSE 82; RESP 15; TEMP 36.5; O2SAT 96
--- NOTE | 2023-04-07 09:27 | W.PM.PROC2 ---
Procedure Note - Detailed Date of Procedure 04/07/23 Pre-op Diagnosis right cubital tunnel syndrome Post-op Diagnosis Same Procedure Performed Right ulnar neuroplasty at the elbow Surgeon Felipe Fisher MD Social Media Community Manager [facility] Description of Procedure The area of the right cubital tunnel was marked on the patient with her consent in the holding area. She was then taken to the operating room where she was placed supine on the operating table. She was given IV sedation the right upper extremity was prepped and draped in usual fashion. The site was marked for the incision and locally infiltrated with 1% lidocaine with epinephrine. The extremity was exsanguinated with an Pierre wrap and the tourniquet inflated to 250 mmHg. The elbow was supported on folded towels and flexed. The incision was made as marked. Blunt and sharp dissection through the subcutaneous tissue which is very ample of revealed the Whiteside ligament. Easily incised and released distally with scissors. The ulnar nerve was followed proximally and distally to release any additional points of compression that we could determine. There was almost no bleeding. The wound was closed with intradermal 3-0 Monocryl sutures at the cross wheeler duran and a running intradermal 3-0 Monocryl to close the skin. The tourniquet was released just at that point. The usual bandage was applied the patient was discharged from the operating room stable condition she has a prescription for cephalexin 15. And hydrocodone 5/325 7.. Estimated Blood Loss 3 Tourniquet Time 30 Drains No Packing No Pathology None sent Complications No immediate complications Condition Stable Disposition Same day
[2023-04-07 09:34] LABS: Glucose Point of Care 61 mg/dl (65-105)
[2023-04-07 09:34] LABS: Glucose Point of Care 88 mg/dl (65-105)
[2023-04-07 09:50] VITALS: BP 99/69; PULSE 66; RESP 16; O2SAT 95
[2023-04-07 10:20] VITALS: BP 128/66; PULSE 62; RESP 16; O2SAT 95
[2023-04-07 10:40] VITALS: BP 121/68; PULSE 65; RESP 16
[2023-04-07 11:07] LABS: Glucose Point of Care 92 mg/dl (65-105)
== END 2023-04-07 11:00 | disposition home or self-care (01) ==
PROVIDERS: PCP Family Medicine; Visit Provider Plastic Surgery
PROC: (CPT 64718; principal; 2023-04-07 08:15)
DX: G56.21 Lesion of ulnar nerve, right upper limb (principal); I11.0 Hypertensive heart disease with heart failure; I50.9 Heart failure, unspecified; J45.909 Unspecified asthma, uncomplicated; E11.9 Type 2 diabetes mellitus without complications; E78.5 Hyperlipidemia, unspecified; G47.33 Obstructive sleep apnea (adult) (pediatric); E66.01 Morbid (severe) obesity due to excess calories; Z68.43 Body mass index [BMI] 50.0-59.9, adult; Z87.891 Personal history of nicotine dependence; Z79.82 Long term (current) use of aspirin; Z79.51 Long term (current) use of inhaled steroids; Z79.84 Long term (current) use of oral hypoglycemic drugs; Z79.899 Other long term (current) drug therapy
CPT/HCPCS: 64718; 82948; A9270; J1100; J2250; J2405; J2704; J3010; J7120

== ENCOUNTER 2023-05-14 11:05 | Day surgery (SDC) | payer OTHER, SELFPAY ==
[2023-05-11 11:48] VITALS: BMI 55.2
[2023-05-14 12:22] VITALS: BP 128/81; PULSE 59; RESP 20; TEMP 35.9; O2SAT 100
[2023-05-14] MEDS: LACTATED RINGERS 1,000 ML 150 ML IV CONT (12:39)
[2023-05-14 12:42] LABS: Glucose Point of Care 79 mg/dl (65-105)
[2023-05-14] MEDS: DEXTROSE 50% 25 GM/50 ML SYRINGE IV PUSH (12:45)
--- NOTE | 2023-05-14 12:56 | WPDANESEPPF ---
Anes - Initial Pre Proc Eval Procedure: Operation Date: 05/14/23 15:00 Proposed Procedures p Screening Colonoscopy - Kev Mccauley MD Date/Time: 05/14/23 12:56 Surgeon: Kev Mccauley MD Pre Op Diagnosis: neoplasm screening Patient Data Age: 57 Gender: F Height: 1.63 m Weight: 147.6 kg Last Vital Signs Temp 96.7 F L 05/14/23 12:22 Pulse 59 L 05/14/23 12:22 Resp 20 05/14/23 12:22 BP 128/81 05/14/23 12:22 Pulse Ox 100 05/14/23 12:22 O2 Del Method Room Air 05/14/23 12:22 Allergies Allergy/AdvReac Type Severity Reaction Status Date / Time Penicillins Allergy Intermediate body rash Verified 05/14/23 12:14 grass pollen Allergy Mild sneezes Verified 05/14/23 12:14 and watery eyes dulaglutide [From [facility]] AdvReac Intermediate Nausea and Verified 05/14/23 12:14 Vomiting Home Medications Medication Instructions Recorded Confirmed Type Saccharomyces boulardii 250 mg 250 mg PO BID 11/12/20 05/11/23 History capsule (Daily Probiotic (S. boulardii)) aspirin 81 mg tablet,delayed 81 mg PO DAILY 11/12/20 05/11/23 History release cholecalciferol (vitamin D3) 125 125 mcg PO DAILY 11/12/20 05/11/23 History mcg (5,000 unit) capsule cinnamon bark 500 mg capsule 500 mg PO DAILY 11/12/20 05/11/23 History krill oil 500 mg capsule 500 mg PO DAILY 11/12/20 05/11/23 History multivitamin 1 tablet PO DAILY 11/12/20 05/11/23 History nitroglycerin 0.4 mg sublingual 0.4 mg sublingual Q5M PRN chest 11/12/20 05/11/23 Rx tablet pain #30 tabs albuterol sulfate 90 mcg/actuation 2 inh inhalation Q4H PRN shortness 04/08/21 05/11/23 Rx aerosol inhaler of breath or wheezing #8.5 grams clobetasol 0.05 % topical cream 1 applic topical BID 2 weeks #45 07/29/21 05/11/23 Rx grams nystatin 100,000 unit/gram topical 1 applic topical BID #120 grams 11/20/22 05/11/23 Rx cream semaglutide 0.25 mg or 0.5 mg (2 0.5 mg (0.736 mL) subcut WEEKLY 1 11/20/22 05/11/23 Rx mg/3 mL) subcutaneous pen injector month #4 mL (Ozempic) budesonide-formoterol HFA 160 2 puff inhalation Q12H PRN 02/26/23 05/11/23 Rx mcg-4.5 mcg/actuation aerosol Wheezing #10.2 grams inhaler (Symbicort) celecoxib 50 mg capsule 50 mg PO BID 05/11/23 05/11/23 History citalopram 40 mg tablet 40 mg PO DAILY 05/11/23 05/11/23 History empagliflozin 10 mg tablet 10 mg PO DAILY 05/11/23 05/11/23 History (Jardiance) losartan 100 mg tablet 100 mg PO DAILY 05/11/23 05/11/23 History metformin 1,000 mg tablet 1,000 mg PO BID 05/11/23 05/11/23 History metoprolol succinate 25 mg 25 mg PO DAILY 05/11/23 05/11/23 History tablet,extended release 24 hr montelukast 10 mg tablet 10 mg PO DAILY 05/11/23 05/11/23 History pravastatin 20 mg tablet 20 mg PO DAILY 05/11/23 05/11/23 History spironolactone 25 mg tablet 25 mg PO DAILY 05/11/23 05/11/23 History topiramate 50 mg tablet 50 mg PO BID 05/11/23 05/11/23 History venlafaxine 75 mg tablet 75 mg PO DAILY 05/11/23 05/11/23 History Laboratory Tests 05/14/23 12:31 POC Capillary Glucose 79 mg/dl (65-105) Patient hx anesthesia problems: none Family hx anesthesia problems: none Results Review: All pre-operative results and documents have been reviewed as part of the pre-operative evaluation. [facility] Past Medical History Medical History (Updated 04/06/23 @ 14:41 by Gary Nj DO) Asthma Asthma Benign essential HTN Benign essential HTN CHF (congestive heart failure) Diabetes mellitus Diabetes mellitus Extreme obesity Extreme obesity Hyperlipidemia Hyperlipidemia DUKE (obstructive sleep apnea) Seizure as child, none since age 6 Surgical History Surgical History History of uvulopalatopharyngoplasty 1999 Family History Family History Father Heart disease Sibling Depression Anxiety Alcoholism Grandparent Cerebro
[2023-05-14 13:03] LABS: Glucose Point of Care 105 mg/dl (65-105)
[2023-05-14 13:20] VITALS: BP 140/73; PULSE 64; RESP 25; O2SAT 100
[2023-05-14 13:30] VITALS: BP 123/93; PULSE 71; RESP 24; O2SAT 100
[2023-05-14 13:36] LABS: Glucose Point of Care 96 mg/dl (65-105)
[2023-05-14 13:40] VITALS: BP 151/82; PULSE 63; RESP 20; O2SAT 98
--- NOTE | 2023-05-20 16:15 | PM.HPGS ---
History of Present Illness History of Present Illness Consent: Risks, benefits, and alternatives have been discussed and questions answered. Patient agrees to proceed with procedure. Chief complaint: neoplasm screening Narrative: Whit Jorge is a 57 year old female is referred for colon cancer screening. Review of Systems Review of Systems: All systems reviewed & are unremarkable except as noted in HPI and below PMFSH Past Medical History Medical History Asthma Asthma Benign essential HTN Benign essential HTN CHF (congestive heart failure) Diabetes mellitus Diabetes mellitus Extreme obesity Extreme obesity Hyperlipidemia Hyperlipidemia DUKE (obstructive sleep apnea) Seizure as child, none since age 6 Surgical History Surgical History History of uvulopalatopharyngoplasty 1999 Family History Family History Father Heart disease Sibling Depression Anxiety Alcoholism Grandparent Cerebrovascular accident Social History Social History Social History: Smoking status: Current some day smoker Tobacco type: cigars Second hand tobacco smoke exposure: No Smoking end date: 12/20/02 Additional smoking assessment comments: occasional cigar - every few months Alcohol intake: current Drinks per week: 2 Alcohol use details: socially occasionally Substance use: never Substance use type: does not use Lack of Transportation: No Lack of Food: Never True Current Housing: I Have Housing Concerned About Future Housing: No Difficulty Paying Gas/Electric Bills: No Difficulty Paying for Meds: No Currently Unemployed: No Education: Bachelor's Degree Difficulty w/ Childcare or Family Care: No Living arrangements: with family Occupation/Education: occupation Gender identity (if verbalized by the patient): Female Sexual Orientation (if Verbalized by the Patient): Straight or Heterosexual Spiritual care concerns: No Meds Home Medications and Allergies Home Medications Medication Instructions Recorded Confirmed Type Saccharomyces boulardii 250 mg 250 mg PO BID 11/12/20 05/11/23 History capsule (Daily Probiotic (S. boulardii)) aspirin 81 mg tablet,delayed 81 mg PO DAILY 11/12/20 05/11/23 History release cholecalciferol (vitamin D3) 125 125 mcg PO DAILY 11/12/20 05/11/23 History mcg (5,000 unit) capsule cinnamon bark 500 mg capsule 500 mg PO DAILY 11/12/20 05/11/23 History krill oil 500 mg capsule 500 mg PO DAILY 11/12/20 05/11/23 History multivitamin 1 tablet PO DAILY 11/12/20 05/11/23 History nitroglycerin 0.4 mg sublingual 0.4 mg sublingual Q5M PRN chest 11/12/20 05/11/23 Rx tablet pain #30 tabs albuterol sulfate 90 mcg/actuation 2 inh inhalation Q4H PRN shortness 04/08/21 05/11/23 Rx aerosol inhaler of breath or wheezing #8.5 grams clobetasol 0.05 % topical cream 1 applic topical BID 2 weeks #45 07/29/21 05/11/23 Rx grams nystatin 100,000 unit/gram topical 1 applic topical BID #120 grams 11/20/22 05/11/23 Rx cream semaglutide 0.25 mg or 0.5 mg (2 0.5 mg (0.736 mL) subcut WEEKLY 1 11/20/22 05/11/23 Rx mg/3 mL) subcutaneous pen injector month #4 mL (Ozempic) budesonide-formoterol HFA 160 2 puff inhalation Q12H PRN 02/26/23 05/11/23 Rx mcg-4.5 mcg/actuation aerosol Wheezing #10.2 grams inhaler (Symbicort) celecoxib 50 mg capsule 50 mg PO BID 05/11/23 05/11/23 History empagliflozin 10 mg tablet 10 mg PO DAILY 05/11/23 05/11/23 History (Jardiance) losartan 100 mg tablet 100 mg PO DAILY 05/11/23 05/11/23 History metformin 1,000 mg tablet 1,000 mg PO BID 05/11/23 05/11/23 History metoprolol succinate 25 mg 25 mg PO DAILY 05/11/23 05/11/23 History tablet,extended release 24 hr montelukast 10 mg tablet 10 mg PO
== END 2023-05-14 13:50 | disposition home or self-care (01) ==
PROVIDERS: PCP Family Medicine; Visit Provider Internal Medicine Gastroenterology
PROC: 0DJD8ZZ Inspection of Lower Intestinal Tract, Via Natural or Artificial Opening Endoscopic (ICD-10-PCS; CPT 45378; principal; 2023-05-14 15:00)
DX: Z12.11 Encounter for screening for malignant neoplasm of colon (principal); K57.30 Diverticulosis of large intestine without perforation or abscess without bleeding; K64.8 Other hemorrhoids; J45.909 Unspecified asthma, uncomplicated; I11.0 Hypertensive heart disease with heart failure; I50.9 Heart failure, unspecified; E11.9 Type 2 diabetes mellitus without complications; E78.5 Hyperlipidemia, unspecified; G47.33 Obstructive sleep apnea (adult) (pediatric); E66.01 Morbid (severe) obesity due to excess calories; Z68.43 Body mass index [BMI] 50.0-59.9, adult; Z79.82 Long term (current) use of aspirin; Z79.51 Long term (current) use of inhaled steroids; Z79.899 Other long term (current) drug therapy; Z79.84 Long term (current) use of oral hypoglycemic drugs; Z72.0 Tobacco use
CPT/HCPCS: 45378; 82948; J2704; J7120

== ENCOUNTER 2024-01-06 14:47 | Emergency (ER) | payer OTHER, SELFPAY ==
--- NOTE | ~2024-01-06 | XR_ITS ---
EXAMINATION: XR pelvis 1-2V DATE: 01/06/2024 15:17 INDICATION: Right hip pain. Low back pain. TECHNIQUE: An anteroposterior view of the pelvis was obtained. COMPARISON: None. FINDINGS: There is lumbar levocurvature and severe spondylosis. No fracture. There is mild osteoarthr itis of the hips. IMPRESSION: 1. Mild osteoarthritis of the hips. Reviewed, dictated and finalized at location E.
[2024-01-06 15:03] VITALS: BP 132/68; PULSE 72; RESP 20; TEMP 37.1; O2SAT 97
--- NOTE | 2024-01-06 15:06 | ED.BACK ---
HPI - Back Pain/Injury General Chief Complaint: Back Pain/Injury Stated Complaint: Back/Right Hip Pain Time Seen by Provider: 01/06/24 15:07 Source: patient, RN notes reviewed and old records reviewed Mode of arrival: ambulatory Limitations: no limitations History of Present Illness HPI Narrative: 58 year old female who presents to [facility] care with complaints of lower back pain for a few days with increased pain today with radiation of pain to her right hip without any injury. Patient reports that she has had back pain in the past and has seen her chiropractor for relief. 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 Patient reports increased pain with movement states feels like spasms when she changes positions. Patient reports no radiation of pain to her legs or any tingling or numbness to her lower extremities. Patient reports no bowel or bladder dysfunction and denies any saddle paresthesia. Patient reports that she has tried Ibuprofen, Tylenol, ice, heat and topical ointments with minimal relief. MD elicited complaint: back pain and other (right hip pain) Pertinent past history: prior back pain Onset (ago): day(s) (few days with increase today.) Pain scale (0-10): 8 Radiation: other (right hip) Treatments prior to arrival: cold therapy, heat therapy, NSAIDS and acetaminophen Work related injury: No Related Data Home Medications Medication Instructions Recorded Confirmed Saccharomyces boulardii 250 mg 250 mg PO BID 11/12/20 01/06/24 capsule (Daily Probiotic (S. boulardii)) aspirin 81 mg tablet,delayed 81 mg PO DAILY 11/12/20 01/06/24 release cholecalciferol (vitamin D3) 125 125 mcg PO DAILY 11/12/20 01/06/24 mcg (5,000 unit) capsule cinnamon bark 500 mg capsule 500 mg PO DAILY 11/12/20 01/06/24 krill oil 500 mg capsule 500 mg PO DAILY 11/12/20 01/06/24 multivitamin 1 tablet PO DAILY 11/12/20 01/06/24 topiramate 50 mg tablet 50 mg PO BID 05/11/23 01/06/24 Allergies Allergy/AdvReac Type Severity Reaction Status Date / Time Penicillins Allergy Intermediate body rash Verified 01/06/24 14:50 grass pollen Allergy Mild sneezes Verified 01/06/24 14:50 and watery eyes dulaglutide [From [facility]] AdvReac Intermediate Nausea and Verified 01/06/24 14:50 Vomiting Review of Systems Review of Systems: CONSTITUTIONAL: Denies fever, chills, or sweats. EYES: Denies visual changes, redness, or discharge. ENT: Denies rhinorrhea, congestion, sore throat, or otalgia. CARDIOVASCULAR: Denies chest pain, palpitations, or edema. RESPIRATORY: Denies cough or dyspnea. GASTROINTESTINAL: Denies abdominal pain, nausea, vomiting, or diarrhea. GENITOURINARY: Denies dysuria or hematuria. SKIN: Denies rash or itching. MUSCULOSKELETAL: Reports lower right back pain with radiation to right hip, joint pain, or myalgia. NEUROLOGIC: Denies headache, numbness, or weakness. PSYCHIATRIC: History of anxiety or depression. All systems reviewed & are unremarkable except as noted in HPI and below PMFSH Past Medical History Medical History Aftercare following right elbow joint replacement surgery Angina pectoris Anxiety and depression Asthma Benign essential HTN CHF (congestive heart failure) Diabetes mellitus DVT (deep venous thrombosis) 2008 Extreme obesity GERD (gastroesophageal reflux disease) Hyperlipidemia Kidney stone DUKE (obstructive sleep apnea) Pulmonary embolism 2008 Seizure as child, none since age 6 Wrist fracture, bilateral Surgical History Surgical History History of arthroscopy of both knees History of cataract surgery History of sinus surgery History of uvulopalatopharyngoplasty 1999 Family History Family History Father Heart disease Sibling Depression Anxiety Alcoholism
== END 2024-01-06 15:45 | disposition home or self-care (01) ==
PROVIDERS: Emergency Provider Registered Nurse; PCP Family Medicine
DX: M54.50 Low back pain, unspecified (principal); M25.551 Pain in right hip; M54.31 Sciatica, right side; I11.0 Hypertensive heart disease with heart failure; I50.9 Heart failure, unspecified; E11.9 Type 2 diabetes mellitus without complications; K21.9 Gastro-esophageal reflux disease without esophagitis; E78.5 Hyperlipidemia, unspecified; I20.9 Angina pectoris, unspecified; J45.909 Unspecified asthma, uncomplicated; Z86.718 Personal history of other venous thrombosis and embolism; Z86.711 Personal history of pulmonary embolism; Z79.82 Long term (current) use of aspirin
CPT/HCPCS: 72170; 99213; G0463

== ENCOUNTER 2024-01-28 12:30 | Outpatient (RCR) | payer OTHER, SELFPAY ==
--- NOTE | 2024-01-04 10:06 | OTOPEVAL1 ---
Assessment and note entered by William Schultz, RODERICK/Rod, CHT Evaluation Information Assessment Status Evaluation Diagnosis Pain and numbness in (R) UE Subjective Information Patient experiencing symptoms x1 month - severe pain beginning in the right shoulder blade, radiating down the arm, and into the ulnar side of the hand. She has a history of right cubital tunnel release Apr 2023. She also sees pain mgmt beginning last year where she received 3 rounds of injections, she is unsure what level in her back/ neck she received the injections, reports somewhere around my shoulder blade . She presents today reporting paresthesia in the middle, ring, and small finger. She reports no longer experiencing radiating pain down the arm, but intermittent hand and wrist. She has history of right wrist fracture x2 with an external fixator ~ 30 years ago. Patient works in [employer]. 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 Cervical CT 11/06/22: C5-C6: There is severe bilateral uncovertebral joint osteoarthritis. There is mild bilateral facet joint osteoarthritis. There is moderate right and mild left neural foraminal stenosis. There is mild central canal stenosis. C6-C7: There is severe bilateral uncovertebral joint osteoarthritis. There is moderate bilateral facet joint osteoarthritis. There is mild bilateral neural foraminal stenosis. There is mild central canal stenosis. C7-T1: There is no uncovertebral joint osteoarthritis. There is severe bilateral facet joint osteoarthritis. There is mild bilateral neural foraminal stenosis. There is no central canal stenosis. Assessment OT Clinical Summary Patient referred to OT with right UE pain and paresthesia. She has a history of cubital tunnel release last Apr. She continues to have distal symptoms in the ulnar 2-3 digits. Tinel's at Guyon 's canal is positive. Manager Image and pinch strengths on the left are diminished. Skilled OT indicated to reduce distal nerve compression, treat pain, and improve functional strength of her dominant UE. Plan of Care Interventions Therapeutic Exercise,Manual Therapy,Hot Pack/Cold Pack,Ultrasound,Paraff
--- NOTE | 2024-01-04 10:06 | OPREHPOC ---
Outpatient Therapy Plan of Care This is a Multidisciplinary Plan of Care that may contain components documented by all disciplines (PT, OT, and ST.) OT Problem 1 OT Problem #1 Knowledge Deficit OT Goal 1 Goal 1. Patient to be independent with instructed materials. Target Visit 5 OT Problem 2 OT Problem #2 Pain OT Goal 1 Goal 1. Patient to report reduced pain in the right hand to 0/10 during ADLs. Target Visit 5 OT Problem 3 OT Problem #3 Impaired Flexibility OT Goal 1 Goal 1. Patient to progress to negative upper limb tension test for the ulnar nerve. OT Problem 4 OT Problem #4 Impaired Strength OT Goal 1 Goal 1. Patient to increase (R) interior paneler strength to 40 lbs . 2. Patient to increase (R) lateral pinch strength to 4 lbs. Target Visit 5
--- NOTE | 2024-02-03 09:28 | OTOPDC ---
Assessment and note entered by William Schultz, OTR/L, CHT OT Discharge Notification 02/03/24 OT Clinical Summary Patient decided to cancel her last appointment, the re-evaluation. She states she likes doing the exercises and that she feels as though her movement has improved, however her distal paresthesia in the ulnar 2 digits has remained unchanged. We are discharging today per patient request. She is to call to follow up with MD.
== END 2024-02-03 10:06 | disposition home or self-care (01) ==
LOC: ANHOT 12:30
PROVIDERS: PCP Family Medicine; Visit Provider Plastic Surgery
DX: M79.601 Pain in right arm (principal); R20.0 Anesthesia of skin; Z98.890 Other specified postprocedural states
CPT/HCPCS: 97018; 97035; 97110; 97166

== ENCOUNTER 2024-02-11 12:38 | Outpatient (CLI) | payer OTHER, SELFPAY ==
[2024-02-11 13:49] LABS: Alanine Aminotransferase 19 U/L (6-35); Albumin Level 4.3 g/dL (3.5-5.1); Alkaline Phosphatase 85 U/L (38-126); Anion Gap 5 mmol/L (4-12); Aspartate Amino Transferase 20 U/L (14-36); Bilirubin,Total 0.7 mg/dL (0.2-1.3); Blood Urea Nitrogen 15 mg/dL (7-17); Calcium 9.2 mg/dL (8.4-10.2); Carbon Dioxide 30 mmol/L (22-30); Chloride 104 mmol/L (98-107); Cholesterol 173 mg/dL (0-200); Estimated Glomerular Filt Rate > 60; Glucose 98 mg/dL (65-110); HDL Direct 52 mg/dL; Potassium 4.4 mmol/L (3.4-5.0); Sodium 139 mmol/L (137-145); Triglycerides 104 mg/dL (<150)
[2024-02-11 14:00] LABS: LDL Cholesterol Direct 104 mg/dL
== END 2024-02-11 12:39 | disposition home or self-care (01) ==
LOC: ANHLAB 12:41
PROVIDERS: PCP Family Medicine; Visit Provider Internal Medicine Cardiovascular Disease
DX: E78.5 Hyperlipidemia, unspecified (principal)
CPT/HCPCS: 36415; 80053; 80061; 80307

== ENCOUNTER 2024-02-15 02:23 | Day surgery (SDC) | payer OTHER, SELFPAY ==
[2024-02-11 15:50] VITALS: BMI 58.2
--- NOTE | 2024-02-11 15:56 | PC.NURSE ---
Report to the Outpatient Waiting Room, entrance under the green pavilion located off [facility], at time _0600_ on date _[id number]_. Planned Procedure Time: _0730_. Time changes happen often and if your time is changed the preop area will call you the afternoon before. - You and your visitor will be asked to self-screen and do not enter if you have any COVID symptoms. - A mask is optional within the hospital at this time. Patients may have clear liquids (water, carbonated beverages, clear teas, apple juice) until 3 hours prior to surgery with a maximum of 20 ounces. - No food from midnight until time of surgery Take the following medications with a SIP of water the morning of surgery: ___Citalopram, Metoprolol and Venlafaxine DO NOT STOP ANY OF YOUR OTHER PRESCRIPTION MEDICATIONS PRIOR TO SURGERY ?EXCEPT THE FOLLOWING Medications to discontinue per physician ___All vitamins and supplements. Date to take last [id number]___[id number] Please no make-up, nail sinhala, hairspray, perfume, deodorant, or body powder the day of surgery. No jewelry (including any body piercings) or valuables the day of surgery, leave them at home. Please take a shower or bath the night before, or the morning of, surgery with an antibacterial soap. Wear comfortable, loose fitting clothing. - Jewelry must be removed prior to entering the operating room. Rings and piercings that are not removed may be cut off. - The hospital will not accept responsibility for valuables. - Please leave all valuables, including medications, at home the day of surgery. If you are going home after surgery, a licensed driver sales must drive you home. - NO public transportation without another adult if you receive anesthesia. - We recommend that an adult stay with you for 24 hours following discharge. - We also recommend that you do not drive, make important decision, drink alcoholic beverages, or take any drugs that were not prescribed by your health care provider for at least 24 hours after your discharge time. Follow any additional instructions given to you from your surgeon. If you or anyone in your household have experienced Covid symptoms in the past week, please notify your surgeon or the nurse liaison at the phone number below for possible testing. Telephone instructions given to Nasim____and asked if any additional questions and then verbalized understanding. Patient advised to call surgeon office or pre surgery nurse liaison [phone] if any additional questions.
[2024-02-15] VITALS (8 sets, daily range): BP systolic 126–159; BP diastolic 61–88; PULSE 73–100; RESP 14–22; TEMP 36.7; O2SAT 94–97
[2024-02-15] MEDS: LACTATED RINGERS 1,000 ML 30 ML IV CONT (06:30)
[2024-02-15 07:04] LABS: Glucose Point of Care 127 mg/dl (65-105)
--- NOTE | 2024-02-15 07:06 | WPDANESEPPF ---
Anes - Initial Pre Proc Eval Procedure: Operation Date: 02/15/24 07:30 Proposed Procedures p Right Open Carpal Tunnel Release, Right Guyon's Canal Release - Felipe Fisher MD Date/Time: 02/15/24 07:06 Surgeon: Felipe Fisher MD Pre Op Diagnosis: right carpal tunnel syndrome Patient Data Age: 58 Gender: F Height: 1.63 m Weight: 154 kg Allergies Allergy/AdvReac Type Severity Reaction Status Date / Time Penicillins Allergy Intermediate body rash Verified 02/11/24 15:45 grass pollen Allergy Mild sneezes Verified 02/11/24 15:45 and watery eyes dulaglutide [From [facility]] AdvReac Intermediate Nausea and Verified 02/11/24 15:45 Vomiting Home Medications Medication Instructions Recorded Confirmed Type Saccharomyces boulardii 250 mg 250 mg PO BID 11/12/20 02/11/24 History capsule (Daily Probiotic (S. boulardii)) aspirin 81 mg tablet,delayed 81 mg PO DAILY 11/12/20 02/11/24 History release cholecalciferol (vitamin D3) 125 125 mcg PO DAILY 11/12/20 02/11/24 History mcg (5,000 unit) capsule cinnamon bark 500 mg capsule 500 mg PO DAILY 11/12/20 02/11/24 History krill oil 500 mg capsule 500 mg PO DAILY 11/12/20 02/11/24 History multivitamin 1 tablet PO DAILY 11/12/20 02/11/24 History nitroglycerin 0.4 mg sublingual 0.4 mg sublingual Q5M PRN chest 11/12/20 02/11/24 Rx tablet pain #30 tabs topiramate 50 mg tablet 50 mg PO BID 05/11/23 02/11/24 History meclizine 12.5 mg tablet 12.5 mg PO TID PRN dizziness #60 07/09/23 02/11/24 Rx tabs citalopram 40 mg tablet See Rx Instructions .Route 08/18/23 02/11/24 Rx .COMPLEX #90 tabs metoprolol succinate 25 mg See Rx Instructions .Route 08/18/23 02/11/24 Rx tablet,extended release 24 hr .COMPLEX #90 tabs pravastatin 20 mg tablet See Rx Instructions .Route 08/18/23 02/11/24 Rx .COMPLEX #90 tabs metformin 1,000 mg tablet 1,000 mg PO BID #180 tabs 10/03/23 02/11/24 Rx spironolactone 25 mg tablet See Rx Instructions .Route 10/04/23 02/11/24 Rx .COMPLEX #60 tabs empagliflozin 10 mg tablet See Rx Instructions .Route 11/15/23 02/11/24 Rx (Jardiance) .COMPLEX #90 tabs losartan 100 mg tablet See Rx Instructions .Route 12/08/23 02/11/24 Rx .COMPLEX #90 tabs venlafaxine 75 mg tablet See Rx Instructions .Route 12/08/23 02/11/24 Rx .COMPLEX #90 tabs CPAP #1 ea 12/31/23 02/11/24 Rx Symbicort 160 mcg-4.5 2 puff inhalation Q12H PRN 12/31/23 02/11/24 Rx mcg/actuation HFA aerosol inhaler Wheezing #10.2 grams (budesonide-formoterol) albuterol sulfate 90 mcg/actuation 2 inh inhalation Q4H PRN shortness 12/31/23 02/11/24 Rx aerosol inhaler of breath or wheezing #8.5 grams montelukast 10 mg tablet 10 mg PO DAILY #30 tabs 12/31/23 02/11/24 Rx hydrocodone 7.5 mg-acetaminophen 1 tablet PO Q6H PRN pain #10 tabs 01/06/24 02/11/24 Rx 325 mg tablet celecoxib 50 mg capsule See Rx Instructions .Route 01/14/24 02/11/24 Rx .COMPLEX #60 caps Laboratory Tests 02/15/24 06:54 POC Capillary Glucose 127 H mg/dl (65-105) Patient hx anesthesia problems: none Family hx anesthesia problems: none Results Review: All pre-operative results and documents have been reviewed as part of the pre-operative evaluation. [facility] Past Medical History Medical History Aftercare following right elbow joint replacement surgery Angina pectoris Anxiety and depression Asthma Benign essential HTN CHF (congestive heart failure) Diabetes mellitus DVT (deep venous thrombosis) 2007 Extreme obesity GERD (gastroesophageal reflux disease) Hyperlipidemia Kidney stone DUKE (obstructive sleep apnea) Pulmonary embolism 2007 Seizure as child, none since age 6 Wrist fracture, bilateral Surgical History Surgical History History of arthroscopy of both knees History of cataract surgery History of sinus surgery History o
--- NOTE | 2024-02-15 07:29 | WPDHPUPDATE1 ---
History and Physical Update Update Date/Time: 02/15/24 07:29 History and Physical has been reviewed, including an updated exam of the patient. There are NO changes in the patient's condition. Risks, benefits, and alternatives have been discussed and questions answered. Patient agrees to proceed with procedure.
--- NOTE | 2024-02-15 07:30 | WPDHPUPDATE1 ---
History and Physical Update Update Date/Time: 02/15/24 07:30 History and Physical has been reviewed, including an updated exam of the patient. There are NO changes in the patient's condition. Risks, benefits, and alternatives have been discussed and questions answered. Patient agrees to proceed with procedure.
[2024-02-15] MEDS: LIDO 1%/EPINEPHRINE 1:100,000 50 ML VIAL 7 ML INFILTRATE (08:11)
[2024-02-15 09:02] LABS: Glucose Point of Care 103 mg/dl (65-105)
--- NOTE | 2024-02-15 09:02 | W.PM.PROC2 ---
Procedure Note - Detailed Date of Procedure 02/15/24 Pre-op Diagnosis Right carpal tunnel syndrome Right Guyon s canal syndrome Post-op Diagnosis Same Procedure Performed Right open carpal tunnel release and Guyon's canal release Surgeon Felipe Fisher MD [employer] Sebastian valdivia Anesthesia General Indications Persistent ulnar hand and digit aching and weakness Description of Procedure The patient was greeted in the holding area. The site was confirmed and marked for the incision. She was then transported to the operating room where she was placed supine on the operating table. She was given general endotracheal anesthesia. The right upper extremity was prepped and draped in usual fashion. The site on the hand was carefully marked for the incision to include access to the carpal tunnel and Guyon's canal. The extremity was exsanguinated and the tourniquet inflated to 250 mmHg. Tourniquet was up for 27 minutes. The incision was made parallel to the thenar crease several mm to the ulnar side of the midline. A Yang incision was made proximally across the wrist crease. The superficial fascia was opened with sharp and blunt dissection exposing the ulnar nerve distal to the pisiform. The palmaris brevis was divided and the hook of the hamate was identified. All traversing deep fascia fibers were divided over the ulnar nerval vascular bundle. The ulnar neurovascular bundle was retracted medially and the deep motor branch was identified. This was followed distally as we divided the hypothenar attachments to the hook of the hamate completely releasing the deep branch. No further dissection distally regarding the superficial branch was necessary. Proximally the ulnar nerve was released into the distal forearm with division of the volar carpal ligament. Attention was turned radially and the incision was made for release of the median nerve on the ulnar margin of the transverse retinaculum. This was completed with scissors distally and proximally. The tourniquet was released and hemostasis was achieved with bipolar cautery on 15 and or pressure. The skin wound was closed with interrupted 5 0 nylon suture. The usual bandage with Pierre wrap was applied. The patient was extubated and transported to the recovery room in stable condition. Estimated Blood Loss 2 Tourniquet Time Total Tourniquet Time: 27 Drains No Packing No Pathology None sent Complications No immediate complications Condition Stable Disposition PACU
== END 2024-02-15 10:46 | disposition home or self-care (01) ==
PROVIDERS: PCP Family Medicine; Visit Provider Plastic Surgery
PROC: (CPT 64721; principal; 2024-02-15 07:30)
DX: G56.01 Carpal tunnel syndrome, right upper limb (principal); G56.22 Lesion of ulnar nerve, left upper limb; I11.0 Hypertensive heart disease with heart failure; I50.9 Heart failure, unspecified; E11.9 Type 2 diabetes mellitus without complications; E78.5 Hyperlipidemia, unspecified; K21.9 Gastro-esophageal reflux disease without esophagitis; J45.909 Unspecified asthma, uncomplicated; G47.33 Obstructive sleep apnea (adult) (pediatric); F41.8 Other specified anxiety disorders; Z86.718 Personal history of other venous thrombosis and embolism; Z86.711 Personal history of pulmonary embolism; Z79.84 Long term (current) use of oral hypoglycemic drugs; Z79.51 Long term (current) use of inhaled steroids; Z79.82 Long term (current) use of aspirin; Z79.891 Long term (current) use of opiate analgesic; Z72.0 Tobacco use; E66.01 Morbid (severe) obesity due to excess calories; Z68.43 Body mass index [BMI] 50.0-59.9, adult
CPT/HCPCS: 64718; 64721; 82948; A9270; J2250; J2405; J2704; J3010; J7120

== ENCOUNTER 2024-06-07 11:15 | Outpatient (CLI) | payer OTHER, SELFPAY ==
--- NOTE | ~2024-06-07 | XR_ITS ---
Left Knee Technique: AP, lateral, and sunrise views were obtained. Clinical History: Pain Findings: No fracture or dislocation is seen. There is moderate tricompartmental degenerative change, with medial compartment narrowing and tricompartmental osteophyte formation. Soft tissues are unrema rkable. No joint effusion is seen. Impression: Moderate tricompartmental degenerative change, as above. Reviewed, dictated and finalized at location M. Impression: Moderate tricompartmental degenerative change, as above.
--- NOTE | ~2024-06-07 | XR_ITS ---
Right Knee Technique: AP, lateral, and oblique views were obtained. Clinical History: Pain Findings: No fracture or dislocation is seen. Osseous alignment is anatomic. Mild tricompartmental de generative spurring present. Soft tissues are unremarkable. No joint effusion is seen. Impression: Mild tricompartmental degenerative spurring. Reviewed, dictated and finalized at [facility]. Impression: Mild tricompartmental degenerative spurring.
== END 2024-06-07 11:16 | disposition home or self-care (01) ==
PROVIDERS: PCP Family Medicine; Visit Provider Physician Assistant
DX: M17.0 Bilateral primary osteoarthritis of knee (principal); M79.671 Pain in right foot; M79.672 Pain in left foot; W19.XXXA Unspecified fall, initial encounter
CPT/HCPCS: 73562; 73630